=== PATIENT | male | born 1995 | race Caucasian/White ===

== ENCOUNTER 2022-06-01 19:01 | Emergency (ER) | payer SELFPAY ==
[~2022-06-01] VITALS: Ht 182.9 cm; Wt 77.3 kg
[2022-06-01 19:07] VITALS: TEMP 97.8
[2022-06-01 20:02] LABS: BASO % 0.2 % (0.0-2.0); EOS % 0.2 % (0.0-4.0); GRAN # 14.8 K/mm3 (1.4-6.5); GRAN % 89.7 % (42.2-75.2); HEMATOCRIT 50.7 % (42.0-52.0); HEMOGLOBIN 17.9 g/dl (13.5-18.0); LYMPH # 0.2 K/mm3 (1.2-3.4); LYMPH % 1.3 % (20.0-51.0); MEAN CELL VOLUME 89 fl (80.0-100.0); MEAN CORPUSCULAR HEMOGLOBIN 31 pg (27-31); MEAN CORPUSCULAR HGB CONC 35 g/dl (33.0-37.0); MEAN PLATELET VOLUME 10.1 fl (7.4-10.4); MONO # 1.3 K/mm3 (0.1-0.6); MONO % 7.9 % (1.7-9.3); PLATELET COUNT 286 K/mm3 (130-400); REDCELL DISTRIBUTION WIDTH-CV 12.6 % (11.5-14.5)
[2022-06-01 20:19] LABS: ALBUMIN 5.1 gm/dL (3.5-5.0); C-REACTIVE PROTEIN 1.47 mg/dL (0.00-0.50); CREATININE, serum 2.15 mg/dL (0.72-1.25); POTASSIUM 4.5 mmol/L (3.5-4.5); TOTAL PROTEIN 9.6 gm/dL (6.2-8.1)
[2022-06-01 21:23] LABS: COLLECTION METHOD CLEAN CATCH
[2022-06-01 21:33] LABS: PH 5.5 (5.0-8.5); URINE APPEARANCE Hazy (CLEAR/HAZY); URINE COLOR Yellow (YELLOW); URINE GLUCOSE Negative (NEGATIVE); URINE KETONE TRACE (NEGATIVE); URINE PROTEIN(semi-quant) 2+ (NEGATIVE)
[2022-06-01 21:34] LABS: URINE BLOOD Negative (NEGATIVE); URINE NITRATE Negative (NEGATIVE); URINE UROBILINOGEN 0.2 E.U/dL (0.2-1.0)
[2022-06-01 21:40] LABS: MUCOUS Present (NOT PRESENT); SQUAMOUS EPITHELIAL 0-2 /hpf (0-10); URINE BACTERIA None Seen /hpf (NONE SEEN)
[2022-06-01] MEDS ORDERED: ZOFRAN ODT4 MG PO (22:02)
[2022-06-01 22:23] VITALS: BP 120/72; PULSE 99
== END 2022-06-02 05:09 | disposition home or self-care (01) ==
LOC: COL.ER 19:01
PROVIDERS: Family Medicine
DX: K52.9 Noninfective gastroenteritis and colitis, unspecified (principal); F17.210 Nicotine dependence, cigarettes, uncomplicated; Z28.310 Unvaccinated for COVID-19; Z98.890 Other specified postprocedural states
CPT/HCPCS: J2270; J2405; J7120; Q9967